=== PATIENT | female | born 1990 | race Caucasian/White ===

== ENCOUNTER 2022-04-16 07:24 | Day surgery (SDC) | payer BC, MEDICAID ==
[2022-04-16 09:56] VITALS: BP 133/66
== END 2022-04-16 10:05 | disposition home or self-care (01) | DRG 552 ==
LOC: ORM 07:24
PROVIDERS: ATTEND Physical Medicine & Rehabilitation
DX: M47.816 Spondylosis without myelopathy or radiculopathy, lumbar region (principal)

== ENCOUNTER 2022-05-14 07:51 | Day surgery (SDC) | payer MEDICAID ==
[~2022-05-14] VITALS: Ht 157.5 cm; Wt 77.1 kg
[2022-05-14 13:23] VITALS: BP 104/86
== END 2022-05-14 11:48 | disposition home or self-care (01) ==
LOC: ORM 07:51
PROVIDERS: ATTEND Physical Medicine & Rehabilitation
DX: M47.816 Spondylosis without myelopathy or radiculopathy, lumbar region (principal); G89.4 Chronic pain syndrome

== ENCOUNTER 2022-07-16 07:44 | Day surgery (SDC) | payer MEDICAID ==
[~2022-07-16] VITALS: Ht 157.5 cm; Wt 79.4 kg
[2022-07-16 11:02] VITALS: BP 127/83
== END 2022-07-16 11:10 | disposition home or self-care (01) ==
LOC: ORM 07:44
PROVIDERS: ATTEND Physical Medicine & Rehabilitation
DX: M47.816 Spondylosis without myelopathy or radiculopathy, lumbar region (principal)